=== PATIENT | female | born 1985 | race Two or more races ===

== ENCOUNTER → 2024-04-12 07:20 | Outpatient (CLI) | payer OTHER ==
[~2024-04-12 07:20] MED LIST: NORVASC2.5 M1 PO
[2024-04-12 08:59] LABS: HEMATOCRIT 38.2 % (36.0-45.00); MEAN CELL VOLUME 91.3 fL (80.00-100.00); MEAN CORPUSCULAR HGB CONC 33.9 g/dl (32.0-36.0); PLATELET COUNT 226 K/uL (150-450); RED BLOOD COUNT 4.18 M/uL (4.00-6.00); RED CELL DISTRIBUTION WIDTH 14.9 % (11.5-14.5)
[2024-04-12 09:15] LABS: URINE APPEARANCE Clear; URINE BILIRRUBIN Negative (NEGATIVE); URINE BLOOD Negative; URINE COLOR Yellow; URINE GLUCOSE Negative (NEGATIVE); URINE KETONE Negative (NEGATIVE); URINE LEUKOCYTE Negative; URINE NITRATE Negative; URINE PROTEIN Negative (NEGATIVE); URINE UROBILINOGEN 0.2 E.U./dl
[2024-04-12 09:16] LABS: URINE EPITHELIAL CELLS 38.1 uL (0.0-38.8); URINE RBC 2.5 uL (0.0-20.8); URINE WBC 5.8 uL (0.0-23.2)
[2024-04-12 09:45] LABS: ALBUMIN 3.3 gm/dL (3.4-5.0); BILIRUBIN TOTAL 0.39 mg/dL (0.3-1.2); CALCIUM 9.1 mg/dL (8.5-10.1); CREATININE SERUM 0.59 mg/dL (0.55-1.02); GFR 113.47; GLOBULINA 3.5 G/DL (2.4-3.5); POTASSIUM 4.08 mEq/L (3.5-5.1); T4 FREE 0.97 NG/ML (0.76-1.46); TOTAL PROTEIN 6.8 gm/dL (6.4-8.2); TSH 1.95 uIU/mL (0.358-3.74)
[2024-04-12 13:14] LABS: RH POSITIVE
[2024-04-14 15:35] LABS: RAPID PLASMA REAGIN NONREACTIVE BY RPR (NONREACTIVE)
== END | disposition home or self-care (01) ==
LOC: LAB 07:20
PROVIDERS: ATTEND Obstetrics & Gynecology
DX: Z34.81 Encounter for supervision of other normal pregnancy, first trimester (principal); E03.9 Hypothyroidism, unspecified; N30.00 Acute cystitis without hematuria

== ENCOUNTER 2024-06-16 18:43 | Emergency (ER) | payer OTHER ==
[~2024-06-16] VITALS: Ht 152.4 cm; Wt 80.7 kg
[2024-06-16 19:11] VITALS: BP 140/9; O2SAT 100
[2024-06-16 23:47] LABS: HEMATOCRIT 36.1 % (36.0-45.00); HEMOGLOBIN 12.6 g/dL (12.0-15.00); MEAN CORPUSCULAR HEMOGLOBIN 31.4 pg (27.00-32.0); MEAN CORPUSCULAR HGB CONC 34.9 g/dl (32.0-36.0); PLATELET COUNT 211 K/uL (150-450); RED BLOOD COUNT 4.02 M/uL (4.00-6.00); RED CELL DISTRIBUTION WIDTH 14.8 % (11.5-14.5)
[2024-06-17 00:11] LABS: ALBUMIN 2.9 gm/dL (3.4-5.0); BILIRUBIN TOTAL 0.12 mg/dL (0.3-1.2); CALCIUM 9.4 mg/dL (8.5-10.1); CREATININE SERUM 0.62 mg/dL (0.55-1.02); GFR 107.16; POTASSIUM 3.64 mEq/L (3.5-5.1); TOTAL PROTEIN 6.9 gm/dL (6.4-8.2)
== END 2024-06-17 01:33 | disposition home or self-care (01) ==
LOC: ER 18:45
PROVIDERS: Preventive Medicine Public Health & General Preventive Medicine
DX: J06.9 Acute upper respiratory infection, unspecified (principal); I10 Essential (primary) hypertension; Z20.822 Contact with and (suspected) exposure to COVID-19

== ENCOUNTER 2024-08-16 08:01 | Outpatient (CLI) | payer OTHER ==
[2024-08-16 09:14] LABS: HEMATOCRIT 37.4 % (36.0-45.00); HEMOGLOBIN 12.5 g/dL (12.0-15.00); MEAN CELL VOLUME 93.5 fL (80.00-100.00); MEAN CORPUSCULAR HEMOGLOBIN 31.1 pg (27.00-32.0); MEAN CORPUSCULAR HGB CONC 33.3 g/dl (32.0-36.0); PLATELET COUNT 167 K/uL (150-450); RED CELL DISTRIBUTION WIDTH 14.7 % (11.5-14.5)
[2024-08-16 09:46] LABS: GLUCOSE FASTING 80 mg/dL (65-100)
== END 2024-08-16 08:10 | disposition home or self-care (01) ==
LOC: LAB 08:01
PROVIDERS: ATTEND Obstetrics & Gynecology
DX: O09.72 Supervision of high risk pregnancy due to social problems, second trimester (principal)

== ENCOUNTER 2024-10-02 09:37 | Emergency (ER) | payer OTHER ==
[~2024-10-02] VITALS: Ht 152.4 cm; Wt 82.6 kg
[2024-10-02] MEDS ORDERED: NASAL MIST126 ML (10:07)
[2024-10-02] MEDS ORDERED: LABETALOL H5 MG/1 ML (10:07)
[2024-10-02] MEDS ORDERED: GUAIFENESIN 200 MG/10 ML BLIST.PACK PO STA (10:29)
[2024-10-02] MEDS ORDERED: ACETAMINOPHEN 500 MG GEL..CAP PO STA (10:29)
[2024-10-02] MEDS ORDERED: CETIRIZINE HCL 5 MG/5 ML ML PO STA (10:30)
[2024-10-02 10:59] LABS: HEMATOCRIT 35.4 % (36.0-45.00); HEMOGLOBIN 12.1 g/dL (12.0-15.00); MEAN CORPUSCULAR HEMOGLOBIN 31.4 pg (27.00-32.0); MEAN CORPUSCULAR HGB CONC 34.1 g/dl (32.0-36.0); PLATELET COUNT 154 K/uL (150-450); RED BLOOD COUNT 3.85 M/uL (4.00-6.00); RED CELL DISTRIBUTION WIDTH 14.9 % (11.5-14.5)
[2024-10-02] MEDS ORDERED: ACETAMINOPHEN500 M2 PO (11:57)
[2024-10-02] MEDS ORDERED: MUCINEX DM ER1 EAC1 PO (11:57)
[2024-10-02] MEDS ORDERED: CETIRIZINE HCL5 M1 PO (11:57)
== END 2024-10-02 12:03 | disposition home or self-care (01) ==
LOC: ER 09:39
PROVIDERS: General Practice
DX: O99.513 Diseases of the respiratory system complicating pregnancy, third trimester (principal); Z3A.32 32 weeks gestation of pregnancy; J06.9 Acute upper respiratory infection, unspecified; I10 Essential (primary) hypertension; Z20.822 Contact with and (suspected) exposure to COVID-19

== ENCOUNTER 2024-10-03 08:50 | Outpatient (CLI) | payer OTHER ==
[~2024-10-03 08:50] MED LIST changes: +ACETAMINOPHEN500 M2 PO; +CETIRIZINE HCL5 M1 PO; +LABETALOL H5 MG/1 ML; +MUCINEX DM ER1 EAC1 PO; +NASAL MIST126 ML
== END 2024-10-03 10:59 | disposition home or self-care (01) ==
LOC: NST 08:50
PROVIDERS: ATTEND Obstetrics & Gynecology Maternal & Fetal Medicine
DX: Z34.83 Encounter for supervision of other normal pregnancy, third trimester (principal)

== ENCOUNTER → 2024-10-16 | Outpatient (CLI) | payer OTHER | END | disposition home or self-care (01) | LOC: NST 09:43 | PROVIDERS: ATTEND Obstetrics & Gynecology Maternal & Fetal Medicine | DX: Z34.83 Encounter for supervision of other normal pregnancy, third trimester (principal) ==

== ENCOUNTER 2024-10-30 08:49 | Outpatient (CLI) | payer OTHER | END 2024-10-30 09:38 | disposition home or self-care (01) | LOC: NST 08:49 | PROVIDERS: ATTEND Obstetrics & Gynecology | DX: Z34.83 Encounter for supervision of other normal pregnancy, third trimester (principal) ==

== ENCOUNTER 2024-11-10 11:52 | Outpatient (CLI) | payer OTHER | END 2024-11-10 13:13 | disposition home or self-care (01) | LOC: NST 11:52 | PROVIDERS: ATTEND Obstetrics & Gynecology Maternal & Fetal Medicine | DX: Z34.83 Encounter for supervision of other normal pregnancy, third trimester (principal) ==

== ENCOUNTER 2024-11-12 07:49 | Inpatient (IN) | payer OTHER ==
[~2024-11-12] VITALS: Ht 152.4 cm; Wt 82.6 kg
[2024-11-12 07:53] VITALS: BP 134/90
[2024-11-12 08:03] VITALS: BP 134/90
[2024-11-12] MEDS ORDERED: PRENATAL + DHA1 EAC1 PO (08:03)
[2024-11-12] MEDS ORDERED: AMPICILLIN SODIUM 2,000 MG VIAL IV ONE (09:00)
[2024-11-12] MEDS ORDERED: RINGERS SOLUTION,LACTATED 1,000 ML IV SCH (09:00)
[2024-11-12] MEDS ORDERED: AMPICILLIN SODIUM 2,000 MG VIAL ONE (09:09)
[2024-11-12] MEDS ORDERED: OXYTOCIN 20 UNITS/500ML RL PIGGYBAG IV ONE (09:09)
[2024-11-12] MEDS ORDERED: OXYTOCIN 20 UNITS/500ML RL PIGGYBAG IV SCH (09:45)
[2024-11-12 10:03] LABS: URINE APPEARANCE Clear; URINE BILIRRUBIN Negative (NEGATIVE); URINE BLOOD Negative; URINE COLOR Yellow; URINE GLUCOSE Negative (NEGATIVE); URINE KETONE Negative (NEGATIVE); URINE LEUKOCYTE Moderate; URINE NITRATE Negative; URINE PROTEIN Negative (NEGATIVE); URINE UROBILINOGEN 0.2 E.U./dl
[2024-11-12 10:04] LABS: URINE BACTERIA 1408.7 uL (0.0-1933); URINE RBC 5.7 uL (0.0-20.8); URINE WBC 43.2 uL (0.0-23.2)
[2024-11-12 10:22] LABS: HEMATOCRIT 35.1 % (36.0-45.00); HEMOGLOBIN 11.6 g/dL (12.0-15.00); MEAN CORPUSCULAR HEMOGLOBIN 29.7 pg (27.00-32.0); PLATELET COUNT 151 K/uL (150-450)
[2024-11-12 10:23] LABS: URINE CAST 0.14 uL (0.0-1.40)
[2024-11-12 10:27] LABS: ALBUMIN 2.7 gm/dL (3.4-5.0); BILIRUBIN TOTAL 0.32 mg/dL (0.3-1.2); CALCIUM 9.5 mg/dL (8.5-10.1); CREATININE SERUM 0.51 mg/dL (0.55-1.02); GFR 133.56; GLOBULINA 3.5 G/DL (2.4-3.5); POTASSIUM 4.21 mEq/L (3.5-5.1); TOTAL PROTEIN 6.2 gm/dL (6.4-8.2)
[2024-11-12 10:30] LABS: INR 0.96; PARTIAL THROMBOPLASTIN TIME 26.6 SECONDS (22.0-34.0); PROTHROMBIN TIME 10.5 SECONDS (9.0-11.5)
[2024-11-12 11:23] VITALS: BP 138/81
[2024-11-12] MEDS ORDERED: AMPICILLIN SODIUM 1,000 MG VIAL IV SCH (13:00)
[2024-11-12 15:26] VITALS: BP 144/76
[2024-11-12 15:30] VITALS: BP 144/76
[2024-11-12] MEDS ORDERED: MORPHINE SULFATE 4 MG/ML CARTRIDGE IV ONE (15:30)
[2024-11-12] MEDS ORDERED: OXYTOCIN 20 UNITS/1000ML RL PIGGYBAG IV ONE (16:15)
[2024-11-12] MEDS ORDERED: ERYTHROMYCIN BASE OPHT 1GM EACH TUBE OP ONE (16:15)
[2024-11-12] MEDS ORDERED: LIDOCAINE HCL 1% 10ML VIAL ONE (16:15)
[2024-11-12] MEDS ORDERED: CHLORHEXIDINE GLUCONATE 120 ML BOTTLE TOP ONE (16:15)
[2024-11-12] MEDS ORDERED: IBUprofen 400 MG TABLET PO PRN (17:30)
[2024-11-12] MEDS ORDERED: CHLORHEXIDINE GLUCONATE 120 ML BOTTLE TP SCH (17:30)
[2024-11-12] MEDS ORDERED: OXYTOCIN 1,000 ML IV SCH (17:30)
[2024-11-12 20:04] VITALS: BP 154/84
[2024-11-13] VITALS: BP 127/77
[2024-11-13 06:14] LABS: HEMATOCRIT 28.4 % (36.0-45.00); HEMOGLOBIN 9.5 g/dL (12.0-15.00); MEAN CELL VOLUME 88.8 fL (80.00-100.00); MEAN CORPUSCULAR HEMOGLOBIN 29.8 pg (27.00-32.0); MEAN CORPUSCULAR HGB CONC 33.5 g/dl (32.0-36.0); PLATELET COUNT 142 K/uL (150-450); RED CELL DISTRIBUTION WIDTH 15.1 % (11.5-14.5)
[2024-11-13] MEDS ORDERED: LABETALOL HCL 200 MG TABLET PO SCH (09:00)
[2024-11-13] MEDS ORDERED: IRON FUM,PS/FOLIC/BCOMP,C NO.9 1 CAP CAPSULE PO SCH (09:00)
[2024-11-13 09:17] VITALS: BP 125/79
[2024-11-13 16:07] VITALS: BP 120/78
[2024-11-14 00:42] VITALS: BP 105/68
[2024-11-14 04:46] VITALS: BP 109/69
[2024-11-14 09:13] VITALS: BP 132/90
== END 2024-11-14 10:26 | disposition home or self-care (01) | DRG 807 ==
LOC: LDR 07:49 → OB/GYN 18:03 → LDR 11-24 15:22
PROVIDERS: Obstetrics & Gynecology; ADMIT Obstetrics & Gynecology Maternal & Fetal Medicine; ATTEND Obstetrics & Gynecology Maternal & Fetal Medicine
PROC: 10E0XZZ Delivery of Products of Conception, External Approach (ICD-10-PCS; principal; 2024-11-12)
PROC: 0KQM0ZZ Repair Perineum Muscle, Open Approach (ICD-10-PCS; 2024-11-12)
PROC: 4A1HXCZ Monitoring of Products of Conception, Cardiac Rate, External Approach (ICD-10-PCS; 2024-11-12)
DX: O70.1 Second degree perineal laceration during delivery (principal); Z37.0 Single live birth; Z3A.38 38 weeks gestation of pregnancy

== ENCOUNTER 2025-01-13 09:50 | Outpatient (CLI) | payer OTHER ==
[~2025-01-13 09:50] MED LIST changes: +PRENATAL + DHA1 EAC1 PO
== END 2025-01-13 09:57 | disposition home or self-care (01) ==
LOC: SONOGRAMA 09:50
PROVIDERS: ATTEND Preventive Medicine Public Health & General Preventive Medicine
DX: M79.641 Pain in right hand (principal); G56.01 Carpal tunnel syndrome, right upper limb

== ENCOUNTER 2025-01-31 07:05 | Outpatient (CLI) | payer OTHER ==
[2025-01-31 08:01] LABS: URINE APPEARANCE Clear; URINE BILIRRUBIN Negative (NEGATIVE); URINE BLOOD Negative; URINE COLOR Yellow; URINE GLUCOSE Negative (NEGATIVE); URINE KETONE Negative (NEGATIVE); URINE LEUKOCYTE Negative; URINE NITRATE Negative; URINE PROTEIN Negative (NEGATIVE); URINE UROBILINOGEN 0.2 E.U./dl
[2025-01-31 08:03] LABS: URINE BACTERIA 444.0 uL (0.0-1933); URINE EPITHELIAL CELLS 34.6 uL (0.0-38.8); URINE RBC 4.5 uL (0.0-20.8); URINE WBC 18.4 uL (0.0-23.2)
[2025-01-31 08:12] LABS: URINE CAST 1.02 uL (0.0-1.40)
[2025-01-31 08:51] LABS: ERYTHROCYTE SEDIMENTATION RATE 28 mm/hr (0-20)
[2025-01-31 08:55] LABS: BASO % 0.8 % (0.1-1.2); EOS # 0.16 (0.04-0.54); EOS % 3.1 % (0.7-7.0); LYMPH # 1.81 (1.18-3.74); LYMPH % 34.5 % (19.3-53.1); MEAN PLATELET VOLUME 11.90 fl (9.4-12.4); MONO # 0.50 (0.24-0.82); MONO % 9.5 % (4.7-12.5); NEUT # 2.72 (1.56-6.13); NEUT % 51.9 % (34.0-71.1); RED CELL DISTRIBUTION WIDTH 15.6 % (11.6-14.4)
[2025-01-31 09:20] LABS: ALT/SGPT 25.0 U/L (12-78); AST/SGOT 23.0 U/L (15-37); BILIRUBIN TOTAL 0.34 mg/dL (0.3-1.2); BUN CREA RATIO 26.0 (7.0-25.0); CHOL HDL RATIO 3.6 (0-5.0); CREATININE SERUM 0.69 mg/dL (0.55-1.02); GFR 94.23; GLOBULINA 3.0 G/DL (2.4-3.5); GLUCOSE FASTING 94.0 mg/dL (65-100); HDL 76.0 mg/dl (40-60); LDL 177.0 mg/dl (0-130); OSMOLALITY SERUM 288.0 MOSM/KG (275-295); VLDL 21.0 (0-39)
[2025-01-31 09:36] LABS: T4 TOTAL 5.85 UG/DL (4.8-13.9); TSH 2.2 uIU/mL (0.358-3.74)
[2025-02-02 10:29] LABS: T3 TOTAL 0.975 ng/ml (0.846-2.02); VITAMIN D3 25 HYDROXY 24.94 ng/ml (30-120)
== END 2025-01-31 07:24 | disposition home or self-care (01) ==
LOC: LAB 07:05
PROVIDERS: ATTEND Preventive Medicine Public Health & General Preventive Medicine
DX: D50.9 Iron deficiency anemia, unspecified (principal); E78.00 Pure hypercholesterolemia, unspecified; I10 Essential (primary) hypertension; E11.9 Type 2 diabetes mellitus without complications; N39.0 Urinary tract infection, site not specified; E03.8 Other specified hypothyroidism; E55.9 Vitamin D deficiency, unspecified; M19.90 Unspecified osteoarthritis, unspecified site; M06.9 Rheumatoid arthritis, unspecified